=== PATIENT | male | born 1940 | race Caucasian/White ===

== ENCOUNTER 2018-07-07 17:49 | Emergency (ER) | payer OTHER ==
[~2018-07-07] VITALS: Ht 172.7 cm; Wt 68.2 kg
[2018-07-07 17:58] VITALS: Ht 172.7 cm; Wt 68.2 kg
[2018-07-07] MEDS ORDERED: DIOVAN160 MG PO (17:59)
[2018-07-07] MEDS ORDERED: [UNRECOGNIZED DRUG - OTHER] (17:59)
[2018-07-08 01:20] VITALS: BP 148/98
== END 2018-07-08 01:21 | disposition home or self-care (01) ==
LOC: D.ER 17:49
DX: N48.30 Priapism, unspecified (principal); I10 Essential (primary) hypertension; Z90.79 Acquired absence of other genital organ(s)